=== PATIENT | male | born 1950 | race Caucasian/White ===

== ENCOUNTER 2020-03-18 11:45 | Inpatient (IN) | payer MEDICAID, MEDICARE, OTHER, SELFPAY ==
[~2020-03-18] VITALS: Ht 170.2 cm; Wt 57.6 kg
[2020-03-18 12:00] VITALS: BP_SYST 74
--- NOTE | 2020-03-18 12:00 | NUR ---
Patient to ER bed 8 to gown for evaluation. Side rails up.
--- NOTE | 2020-03-18 12:05 | NUR ---
Pt bib EMS from SNF with c/o generalized weakness, n/v x2 days. Pt currently on dialysis but refused today's treatment. V/S stable, pt is afebrile. Currently resting in bed, will continue to monitor.
--- NOTE | 2020-03-18 12:05 | NUR ---
ER Dr. Gates at bedside examining patient.
--- NOTE | 2020-03-18 12:10 | NUR ---
Nasal swab obtained to r/o covid. Sample sent to lab, pt tolerated well.
--- NOTE | 2020-03-18 12:10 | NUR ---
# 20 gauge angiocath placed to LAC. Use of asceptic technique. Opsite placed over site. Blood return noted. Blood for lab drawn from site. Flushed with 10 cc of normal saline. No evidence of infiltration noted. Patient tolerated well.
[2020-03-18] MEDS ORDERED: NACL 0.9% 1,000 ML IV ONE ×2 (12:15→15:45)
[2020-03-18 12:23] LABS: BASOPHILS % (AUTO) 0.3 % (0.0-2.0); EOSINOPHILS % (AUTO) 0.1 % (0.0-4.0); HEMATOCRIT 40.6 % (36-54); HEMOGLOBIN 13.2 g/dL (14.0-18.0); LYMPHOCYTES # (AUTO) 2.1 K/uL (1.0-5.5); LYMPHOCYTES % (AUTO) 15.1 % (20.5-51.5); MEAN CORPUSCULAR HEMOGLOBIN 33 pg (27-31); MEAN CORPUSCULAR HGB CONC 33 % (32-36); MEAN CORPUSCULAR VOLUME 101 fL (79.0-98.0); MONOCYTES # (AUTO) 1.5 K/uL (0.0-1.0); MONOCYTES % (AUTO) 10.4 % (1.7-9.3); NEUTROPHILS # (AUTO) 10.5 K/uL (1.8-7.7); NEUTROPHILS % (AUTO) 74.1 % (40.0-70.0); PLATELET COUNT (AUTO) 204 K/uL (130-430); RED BLOOD CELL COUNT(AUTO) 4.02 MIL/uL (4.2-6.2); RED CELL DISTRIBUTION WIDTH 15.5 % (9.0-15.0); WHITE BLOOD COUNT (AUTO) 14.2 K/uL (4.8-10.8)
--- NOTE | 2020-03-18 12:23 | NUR ---
Radiology at bedside for CXR
[2020-03-18 12:42] LABS: CALCIUM 10.5 mg/dL (8.4-11.0); CREATININE 5.79 mg/dL (0.55-1.30); POTASSIUM 3.7 mmol/L (3.5-5.1)
[2020-03-18 12:46] LABS: INR 1.2 (0.80-1.20)
[2020-03-18 12:48] LABS: ALBUMIN 2.9 g/dL (3.4-4.8); TOTAL BILIRUBIN 1.3 mg/dL (0.0-1.0)
[2020-03-18] MEDS ORDERED: AMIT10TA6 PO (13:08)
[2020-03-18] MEDS ORDERED: ZINC220T4 PO (13:08)
[2020-03-18] MEDS ORDERED: TAMS-11 PO (13:08)
[2020-03-18] MEDS ORDERED: NEU300 PO (13:08)
[2020-03-18] MEDS ORDERED: NEPH PO (13:08)
[2020-03-18] MEDS ORDERED: APIX2.5T PO (13:08)
[2020-03-18] MEDS ORDERED: MIDO10TA PO (13:08)
--- NOTE | 2020-03-18 13:10 | NUR ---
Med rec and belongings list completed.
[2020-03-18] MEDS ORDERED: ceFAZolin SODIUM 1 GM VIAL IM ONE (13:15)
--- NOTE | 2020-03-18 13:20 | NUR ---
Patient transported to radiology via wheelchair, accompanied by staff.
--- NOTE | 2020-03-18 14:03 | NUR ---
Talked to , Beverly, she would like a call for updates when possible. [phone]
--- NOTE | 2020-03-18 14:29 | NUR ---
Admit orders received from Dr. Bolaños, pt will go to Tele. Talked to JOSE Davis for bed assignment. She will call me back.
[2020-03-18] MEDS ORDERED: VANCOMYCIN HCL Non-Formulary 125 MG CAPSULE PO ONE (14:30)
--- NOTE | 2020-03-18 15:28 | NUR ---
Patient will be admitted to care of Dr. Bolaños. Admitted to Tele unit. Will go to room 114A. Belongings list completed. Complete and up to date summary report printed. SBAR report to be given at bedside with opportunity for questions. IV site patent and intact.
--- NOTE | 2020-03-18 16:03 | NUR ---
CONSULTATION CALLED REASON FOR CONSULTATION:C.DIFF WAS CONSULT CALLED?Y PERSON WHO WAS NOTIFIED:KENAN CONSULTING PHYSICIAN:TERA ABRAHAM GAMEROOM TECHNICIAN SPECIALTY:INFECTIOUS DISEASE GAMEROOM TECHNICIAN PHONE NUMBER:[phone] REQUESTING PHYSICIAN:SUKHJINDER HERNANDEZ
--- NOTE | 2020-03-18 16:05 | NUR ---
CONSULTATION CALLED REASON FOR CONSULTATION:ESRD WAS CONSULT CALLED?Y PERSON WHO WAS NOTIFIED:AZALIA CONSULTING PHYSICIAN:NARESH MILTON COMPLETION SUPERVISOR SPECIALTY:NEPHRO COMPLETION SUPERVISOR PHONE NUMBER:[phone] REQUESTING PHYSICIAN:SUKHJINDER HERNANDEZ
[2020-03-18 16:10] VITALS: BP_SYST 105
--- NOTE | 2020-03-18 16:10 | NUR ---
Opening Note patient brought to room 114A via gurney by LAND MANAGEMENT SUPERVISOR, received bedside SBAR report, patient resting in bed, A&Ox4, respirations even and unlabored on room air, tele monitor in place, no acute distress noted, patient denies any pain, NS bolus still infusing at this time, educated patient on use of call light and asked to call for assistance, patient verbalized understanding, call light in reach, bed in low and locked position, bed alarm on.
[2020-03-18] MEDS: D5/0.45 NS 1,000 ML IV SCH (18:13)
[2020-03-18] MEDS ORDERED: MIDODRINE HCL 5 MG TABLET (PROAMATINE) PO ONE (18:15)
[2020-03-18] MEDS ORDERED: APIXABAN 2.5 MG TABLET PO ONE (18:15)
--- NOTE | 2020-03-18 18:56 | NUR ---
Emesis patient had episode of emesis, 50ml, educated patient on PRN zofran and offered patient PRN zofran, patient refusing PRN zofran at this time, patient states that he feels a little better now, no acute distress noted, respirations even and unlabored on room air.
--- NOTE | 2020-03-18 19:18 | NUR ---
Closing Note bedside SBAR report given to receiving RN, patient resting in bed, respirations even and unlabored on room air, no acute distress noted, educated patient on use of call light and asked to call for assistance, patient verbalized understanding, call light in reach, bed in low and locked position, bed alarm on, care endorsed to senior counsel RN.
[2020-03-18 19:20] VITALS: BP_SYST 105
--- NOTE | 2020-03-18 19:20 | NUR ---
INITIAL NOTES PATIENT IS STABLE AND LAYING IN BED. NO S/S OF RESPIRATORY DISTRESS NOTED. CALL LIGHT IN REACH. PATIENT SUCCESSFULLY DEMONSTRATES USAGE OF CALL LIGHT. PLAN OF CARE IS DISCUSSED WITH PATIENT. FALL, SAFETY, ASPIRATION, AND RESPIRATORY PRECAUTIONS WILL BE IN PLACE THROUGHOUT THE SHIFT. PLAN OF CARE IS DISCUSSED WITH PATIENT.
--- NOTE | 2020-03-18 21:20 | NUR ---
PATIENT IS SLEEPING IN BED. NO S/S OF RESPIRATORY DISTRESS NOTED. CALL LIGHT IN REACH.
[2020-03-18] MEDS: metroNIDAZOLE 500 mg/NS 100 ML IV SCH (22:32)
--- NOTE | 2020-03-18 23:20 | NUR ---
PATIENT IS SLEEPING IN BED AND SHOWS NO S/S OF RESPIRATORY DISTRESS. CALL LIGHT IN REACH.
[2020-03-19 00:45] VITALS: BP_SYST 90
--- NOTE | 2020-03-19 03:35 | NUR ---
COMMUNICATED WITH DR. SAMAYOA COMMUNICATED WITH DR. SAMAYOA ABOUT HEART RATE AND BLOOD PRESSURE. ORDERED ALBUMIN AND CONSULT FOR SHANE. Addendum: 03/19/20 at 0642 by Guilherme Song RN HEART RATE SUSTAINING IN THE 120'S*
[2020-03-19] MEDS ORDERED: ALBUMIN HUMAN 25% 200 ML IV ONE (03:45)
--- NOTE | 2020-03-19 03:51 | NUR ---
MEDICATION PIXUS HAD ONLY ALBUMIN 25% IN 100 ML. 2 WAS TAKEN OUT TO EQUAL 200 ML. FIRST ALBUMIN 100 HUNG NOW.
--- NOTE | 2020-03-19 05:16 | NUR ---
CONSULT: CONSULT CALLED FOR DR. LYNN I SPOKE WITH CLEMENT LINDER REASON FOR CONSULT: TACHYCARDIA REQUESTING CONSULT: DR SAMAYOA WAISTLINE JOINER LOCKSTITCH PHONE NUMBER: [phone]
[2020-03-19] MEDS: metroNIDAZOLE 500 mg/NS 100 ML IV SCH ×3 (05:51→21:16)
--- NOTE | 2020-03-19 06:30 | NUR ---
SECOND ALBUMIN 25% IN 100 ML HUNG NOW.
--- NOTE | 2020-03-19 06:40 | NUR ---
CLOSING NOTE PATIENT IS STABLE AND LAYING IN BED. NO S/S OF RESPIRATORY DISTRESS NOTED. CALL LIGHT IN REACH. BED IS LOCKED, ALARMED, AND AT THE LOWEST POSITION. FALL, SAFETY, ASPIRATION, AND RESPIRATORY PRECAUTIONS HAS BEEN IN PLACE THROUGHOUT THE SHIFT. WILL CONTINUE TO MONITOR UNTIL SBAR REPORT IS ENDORSED TO AM NURSE.
[2020-03-19 07:59] LABS: BASOPHILS % (AUTO) 0.1 % (0.0-2.0); EOSINOPHILS % (AUTO) 0.4 % (0.0-4.0); HEMATOCRIT 32.3 % (36-54); HEMOGLOBIN 10.6 g/dL (14.0-18.0); LYMPHOCYTES # (AUTO) 1.6 K/uL (1.0-5.5); LYMPHOCYTES % (AUTO) 12.4 % (20.5-51.5); MEAN CORPUSCULAR HEMOGLOBIN 33 pg (27-31); MEAN CORPUSCULAR HGB CONC 33 % (32-36); MEAN CORPUSCULAR VOLUME 101 fL (79.0-98.0); MONOCYTES # (AUTO) 1.7 K/uL (0.0-1.0); MONOCYTES % (AUTO) 13.7 % (1.7-9.3); NEUTROPHILS # (AUTO) 9.3 K/uL (1.8-7.7); NEUTROPHILS % (AUTO) 73.4 % (40.0-70.0); PLATELET COUNT (AUTO) 176 K/uL (130-430); RED BLOOD CELL COUNT(AUTO) 3.22 MIL/uL (4.2-6.2); RED CELL DISTRIBUTION WIDTH 15.6 % (9.0-15.0); WHITE BLOOD COUNT (AUTO) 12.6 K/uL (4.8-10.8)
[2020-03-19 08:00] VITALS: BP_SYST 102
[2020-03-19 08:12] LABS: ALBUMIN 2.9 g/dL (3.4-4.8); CALCIUM 9.1 mg/dL (8.4-11.0); CREATININE 5.54 mg/dL (0.55-1.30); PHOSPHORUS 4.9 mg/dL (2.7-4.5); POTASSIUM 3.2 mmol/L (3.5-5.1); TOTAL BILIRUBIN 1.5 mg/dL (0.0-1.0)
[2020-03-19 08:50] LABS: THYROID STIMULATING HORMONE 0.48 uIu/mL (0.34-4.82)
[2020-03-19] MEDS: MIDODRINE HCL 5 MG TABLET (PROAMATINE) PO SCH ×3 (09:29→21:16)
[2020-03-19] MEDS: APIXABAN 2.5 MG TABLET PO SCH ×2 (09:30→21:21)
--- NOTE | 2020-03-19 09:48 | NUR ---
alert, oriented, wide awake. Did not even touch breakfast tray, " want In and Out only" Still tachy, HR 115, now seen by bin piler , dr Barrios awaiting HD today, will address low potassium when attending makes round ( K + 3.2)
--- NOTE | 2020-03-19 10:07 | NUR ---
Nutrition Update Jayy Scale 14 noted. Pt admitted for renal failure, r/o C. diff. Diet: 2 gm Na BMI: 19 kg/m2 RD to follow per nutrition care standards.
[2020-03-19] MEDS: D5/0.45 NS 1,000 ML IV SCH (10:30)
[2020-03-19] MEDS ORDERED: POTASSIUM CHLORIDE 20 MEQ/PKT PACKET PO ONE (12:30)
[2020-03-19 12:45] VITALS: BP_SYST 90
--- NOTE | 2020-03-19 14:44 | NUR ---
SS NOTES/DCP: SHELF STOCKER was referred by CM to see patient for DCP. Demographic information confirmed. SHELF STOCKER met with patient at bedside but was asleep. SHELF STOCKER phoned spouse, Beverly @ [phone] instead. Per Beverly pt was independent before his hospitalizations started in November 2018. Pt had septic shock and was admitted at [facility] and discharged to multiple SNF's afterwards. Pt was also covid + 2x while at SNF. Patient's last hospitalization prior to [place] was at [facility] for 3-4 months. Per spouse, pt's source of income is his senior care. 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 Per spouse, pt does not have a history of mental health diagnosis but is "probably depressed". Spouse denies any substance use/abuse history. When discharge, spouse prefers for the patient to go back to [place]. If HHS is indicated, spouse prefers not to be discharged home due to the current construction happening in their house right now. Patient has an advanced directive and spouse is the surrogate decision maker. No further SS needs identified but will remain available.
[2020-03-19] MEDS ORDERED: COMMUNICATION ORDER XX ONE (15:45)
[2020-03-19 16:00] VITALS: BP_SYST 94
[2020-03-19] MEDS ORDERED: HEPARIN SODIUM,PORCINE 5,000 UNITS/ML VIAL MC ONE ×2 (16:00)
--- NOTE | 2020-03-19 16:07 | NUR ---
HIGH ALERT NOTE: Called Dr. Galloway back at [phone] identified within the medical roster to verify physician authenticity.
--- NOTE | 2020-03-19 17:20 | NUR ---
completed 2 1/2 hr dialysis, 250cc out . bp this time 94/60, HR 146, temp 98.9, asleep . " tired, did not want to eat, please dont wake me up".
[2020-03-19 18:08] VITALS: BP_SYST 101
--- NOTE | 2020-03-19 19:52 | NUR ---
Initial note: Received report from daysdorianft RN. Patient is awake in bed. No acute distress. Even, unlabored breathing on room air. IV fluids infusing as ordered, no infiltration. Call light with patient. Safety, fall, contact enteric precautions in place. Will continue with plan of care.
[2020-03-19 20:00] VITALS: BP_SYST 93
--- NOTE | 2020-03-19 22:33 | NUR ---
Rounds: Patient is resting in bed, no acute distress. Tolerating room air, even and unlabored breathing. IV fluids infusing well. Call light with patient. Will continue to monitor.
[2020-03-20] VITALS: BP_SYST 94
--- NOTE | 2020-03-20 00:52 | NUR ---
Rounds: Patient is asleep, no signs/symptoms of acute distress. Respirations are even and unlabored on room air. No infiltration to IV site, IV fluids infusing as ordered. Call light with patient. Will continue to monitor.
--- NOTE | 2020-03-20 03:44 | NUR ---
Rounds: Patient is sleeping comfortably. Does not show any acute distress. Even and unlabored breathing on room air. IV fluids per MD order infusing, no infiltration. Call light with patient. Will continue monitoring.
[2020-03-20] MEDS: metroNIDAZOLE 500 mg/NS 100 ML IV SCH ×3 (05:24→21:31)
[2020-03-20] MEDS: D5/0.45 NS 1,000 ML IV SCH (05:29)
[2020-03-20] MEDS: ONDANSETRON HCL 4 MG/2 ML VIAL IVP PRN (05:30)
--- NOTE | 2020-03-20 06:23 | NUR ---
Dr. Barrios: was paged at this time and made aware of patient having runs of bigeminy PVC's overnight. Patient did not complain of any chest pain, SBP has been in the 90's, and HR in the 120's. MD stated to monitor patient and watch for potassium results.
--- NOTE | 2020-03-20 06:31 | NUR ---
Closing note: Patient is resting comfortably in bed. Does not show any acute distress. Tolerating room air. Respirations even and unlabored. IV fluids infusing per MD order, site is patent and benign. All needs met. Safety, fall, enteric contact iso precautions in place. Call light with patient. Will endorse care to dayshift RN.
[2020-03-20 07:19] LABS: HEMATOCRIT 35.6 % (36-54); HEMOGLOBIN 11.5 g/dL (14.0-18.0); MEAN CORPUSCULAR HEMOGLOBIN 33 pg (27-31); MEAN CORPUSCULAR HGB CONC 32 % (32-36); MEAN CORPUSCULAR VOLUME 102 fL (79.0-98.0); PLATELET COUNT (AUTO) 188 K/uL (130-430); RED CELL DISTRIBUTION WIDTH 15.4 % (9.0-15.0); WHITE BLOOD COUNT (AUTO) 27.3 K/uL (4.8-10.8)
[2020-03-20 07:31] LABS: CALCIUM 8.9 mg/dL (8.4-11.0); CREATININE 4.6 mg/dL (0.55-1.30); POTASSIUM 3.2 mmol/L (3.5-5.1)
[2020-03-20 08:00] VITALS: BP_SYST 85
--- NOTE | 2020-03-20 08:00 | NUR ---
Initial notes In bed awake and oriented, afebrile. ivf infusing well. has incontinent of stool, change and repositioned complains. denies any chest pain or shortness of breath. safety precaution observed. call light in reach. Will continue
[2020-03-20] MEDS: MIDODRINE HCL 5 MG TABLET (PROAMATINE) PO SCH ×3 (08:32→21:30)
[2020-03-20] MEDS: APIXABAN 2.5 MG TABLET PO SCH ×2 (08:38→21:35)
--- NOTE | 2020-03-20 09:40 | NUR ---
ROUNDS Dr. Barrios here and made aware of low blood pressure and potassium results.
--- NOTE | 2020-03-20 10:00 | NUR ---
Consults- Follow up Dr. Jayshree Sherwood for consults.
[2020-03-20] MEDS: ALBUMIN HUMAN 25% 50 ML IV SCH ×3 (10:09→23:35)
[2020-03-20 10:13] LABS: BAND % (MANUAL) 39 % (0-6); BASOPHILS % (MANUAL) 0 % (0-2); EOSINOPHILS % (MANUAL) 0 % (0-7); LYMPHOCYTES % (MANUAL) 12 % (20-46); METAMYELOCYTES % 1 % (0-0); MONOCYTES % (MANUAL) 6 % (0-11)
--- NOTE | 2020-03-20 11:15 | NUR ---
MD ROUNDS DR. MALLORY here and aware of labs results.
--- NOTE | 2020-03-20 11:51 | NUR ---
nOTES/ md ROUNDS PT IS WATCHING TV, DENIES ANY PAIN NO DISTRESS NOTED. DR. Galloway at bedside talking to patient.
[2020-03-20 12:00] VITALS: BP_SYST 92
[2020-03-20] MEDS ORDERED: POTASSIUM CHLORIDE 20 MEQ TAB.PRT.SR PO ONE (12:15)
[2020-03-20] MEDS ORDERED: FLUDROCORTISONE ACETATE 0.1 MG TABLET( FLORINEF) PO ONE (12:15)
--- NOTE | 2020-03-20 12:30 | NUR ---
Notes Does not want the food, patient is drinking his nephro at this time.
[2020-03-20] MEDS ORDERED: LEVOFLOXACIN 500 MG/D5W 100 ML IV ONE (13:45)
--- NOTE | 2020-03-20 13:49 | NUR ---
CONSULTATION: REASON FOR CONSULT: COITIS CONSULTING PHYSICIAN: CLAUDIA ROJAS MD ORDERED BY: TERA MALLORY MD [phone] TUTTLE WHO IS COVERING FOR DR ROJAS AND IS AWARE OF THE CONSULT
--- NOTE | 2020-03-20 14:25 | NUR ---
Dietitian Recommendations * Recommend continuing 2 gm Na diet w/ Nepro TID (ONS provides 1275 kcal/day, 57 gm protein/day) [place] SOARES Please refer to Nutrition Assessment for details. Addendum: 03/20/20 at [address] Amended: Links added.
--- NOTE | 2020-03-20 14:36 | NUR ---
Notes- Instructed patient to call if he feels like he is going to have bowel movements. Patient's verbalize understanding.
[2020-03-20 16:36] VITALS: BP_SYST 98
--- NOTE | 2020-03-20 16:51 | NUR ---
BM-Patient had urine and small bowel movement at the same time in the bedpan. will collect another one.
[2020-03-20] MEDS ORDERED: VANCOMYCIN HCL ORAL SOLUTION 250 MG/5 ML, 80 ML PO SCH (17:00)
[2020-03-20] MEDS: METOCLOPRAMIDE HCL 10 MG/2 ML VIAL IVP PRN (17:24)
[2020-03-20] MEDS: VANCOMYCIN HCL ORAL SOLUTION 250 MG/5 ML, 80 ML PO SCH ×2 (17:25→21:31)
--- NOTE | 2020-03-20 18:08 | NUR ---
Notes- Enc patient to eat, patient only wants to drink her nephro at this time. No acute distress noted. will continue to monitor.
[2020-03-20 20:00] VITALS: BP_SYST 86
[2020-03-20 23:36] VITALS: BP_SYST 91
--- NOTE | 2020-03-21 00:35 | NUR ---
Stool sample: Patient had a BM with brown, watery stool. Sample collected for ordered stool culture and occult blood. Sent to lab at this time.
[2020-03-21] MEDS: metroNIDAZOLE 500 mg/NS 100 ML IV SCH ×3 (05:10→23:13)
[2020-03-21] MEDS: D5/0.45 NS 1,000 ML IV SCH ×2 (05:11→23:14)
[2020-03-21 06:46] LABS: HEMATOCRIT 34.9 % (36-54); HEMOGLOBIN 11.1 g/dL (14.0-18.0); MEAN CORPUSCULAR HEMOGLOBIN 33 pg (27-31); MEAN CORPUSCULAR HGB CONC 32 % (32-36); MEAN CORPUSCULAR VOLUME 102 fL (79.0-98.0); PLATELET COUNT (AUTO) 166 K/uL (130-430); RED BLOOD CELL COUNT(AUTO) 3.43 MIL/uL (4.2-6.2); RED CELL DISTRIBUTION WIDTH 15.6 % (9.0-15.0)
[2020-03-21 07:17] LABS: CREATININE 5.12 mg/dL (0.55-1.30); POTASSIUM 3.3 mmol/L (3.5-5.1)
[2020-03-21 08:00] VITALS: BP_SYST 92
--- NOTE | 2020-03-21 08:00 | NUR ---
Initial notes watching tv, denies any chest pain or shortness of breath. feels nauseated. will medicate. Repositioned for comfort. update plan of care. will monitor.
[2020-03-21] MEDS: VANCOMYCIN HCL ORAL SOLUTION 250 MG/5 ML, 80 ML PO SCH ×4 (08:34→22:14)
[2020-03-21] MEDS: FLUDROCORTISONE ACETATE 0.1 MG TABLET( FLORINEF) PO SCH (08:34)
[2020-03-21] MEDS: MIDODRINE HCL 5 MG TABLET (PROAMATINE) PO SCH ×3 (08:34→22:14)
[2020-03-21] MEDS: APIXABAN 2.5 MG TABLET PO SCH ×2 (08:37→22:16)
[2020-03-21] MEDS: ONDANSETRON HCL 4 MG/2 ML VIAL IVP PRN (08:38)
[2020-03-21 08:43] LABS: WHITE BLOOD COUNT (AUTO) 38.2 K/uL (4.8-10.8)
--- NOTE | 2020-03-21 08:51 | NUR ---
BRIT MALLORY SPOKE TO YOSHI
--- NOTE | 2020-03-21 08:55 | NUR ---
critical lab- Paged Dr. chacko. waiting for MD to call back.
--- NOTE | 2020-03-21 09:55 | NUR ---
paged- Spoke to Dr. Bolaños and made aware of wbc resu Addendum: 03/21/20 at 1144 by Mikki Dooley RN made aware of WBC results. stated to wait for DR. Sherwood. No new orders at this time.
[2020-03-21] MEDS ORDERED: ALBUMIN HUMAN 25% 200 ML IV ONE (11:00)
[2020-03-21] MEDS ORDERED: COMMUNICATION ORDER XX ONE (11:00)
--- NOTE | 2020-03-21 11:40 | NUR ---
Notes- Patient still having dialysis at this time.No acute distress noted.
[2020-03-21 11:41] LABS: BAND % (MANUAL) 36 % (0-6); BASOPHILS % (MANUAL) 0 % (0-2); EOSINOPHILS % (MANUAL) 0 % (0-7); LYMPHOCYTES % (MANUAL) 5 % (20-46); MONOCYTES % (MANUAL) 2 % (0-11); WBC MORPHOLOGY TOXIC GRANULATION
[2020-03-21 12:38] VITALS: BP_SYST 94
[2020-03-21] MEDS ORDERED: POTASSIUM CHLORIDE 20 MEQ/PKT PACKET PO ONE (14:30)
--- NOTE | 2020-03-21 15:00 | NUR ---
notes- Dialysis done with 600 output.
[2020-03-21 16:12] VITALS: BP_SYST 95
[2020-03-21] MEDS: METOCLOPRAMIDE HCL 10 MG/2 ML VIAL IVP PRN (16:41)
--- NOTE | 2020-03-21 18:30 | NUR ---
Notes Watching tv. No distress noted. Pt cleaned. Enc to call if he needs to be changed. pt verbalize understanding.
--- NOTE | 2020-03-21 19:30 | NUR ---
OPENING NOTES RECEIVED REPORT FROM DAY SHIFT RN. PT RESTING IN BED. BREATHING EVEN AND UNLABORED TO ROOM AIR. CHEST RISE AND FALL SYMMETRICAL. NO SIGNS OF RESPIRATORY NOTED. IV ON LEFT AC20G INTACT, NO SIGNS OF INFILTRATION NOTED. IVF RUNNING ORDERED RATE. RIGHT SUBCLAVIAN PERMACATH INTACT, NO BLEEDING NOTED. CALL LIGHT WITHIN REACH . BED ALARM ON, LOCKED IN LOWEST POSITION. SAFETY, FALL, AND CONTACT ISOLATION PRECAUTIONS MAINTAINED. WILL CONTINUE TO MONITOR.
[2020-03-21 20:00] VITALS: BP_SYST 88
[2020-03-21] MEDS: CHOLESTYRAMINE/SUCROSE 4 GM/PACKET PO SCH (23:13)
[2020-03-22 01:57] VITALS: BP_SYST 112
[2020-03-22 02:00] VITALS: BP_SYST 112
[2020-03-22] MEDS: metroNIDAZOLE 500 mg/NS 100 ML IV SCH ×3 (06:13→21:00)
[2020-03-22 07:02] LABS: BASOPHILS # (AUTO) 0.1 K/uL (0.0-0.2); BASOPHILS % (AUTO) 0.2 % (0.0-2.0); EOSINOPHILS # (AUTO) 0.1 K/uL (0.0-0.4); EOSINOPHILS % (AUTO) 0.2 % (0.0-4.0); HEMATOCRIT 34.5 % (36-54); HEMOGLOBIN 11.2 g/dL (14.0-18.0); LYMPHOCYTES # (AUTO) 3.2 K/uL (1.0-5.5); LYMPHOCYTES % (AUTO) 10.6 % (20.5-51.5); MEAN CORPUSCULAR HEMOGLOBIN 33 pg (27-31); MEAN CORPUSCULAR HGB CONC 32 % (32-36); MEAN CORPUSCULAR VOLUME 101 fL (79.0-98.0); MONOCYTES # (AUTO) 1.3 K/uL (0.0-1.0); MONOCYTES % (AUTO) 4.4 % (1.7-9.3); NEUTROPHILS # (AUTO) 25.3 K/uL (1.8-7.7); PLATELET COUNT (AUTO) 170 K/uL (130-430); RED BLOOD CELL COUNT(AUTO) 3.41 MIL/uL (4.2-6.2); RED CELL DISTRIBUTION WIDTH 15.9 % (9.0-15.0); WHITE BLOOD COUNT (AUTO) 29.9 K/uL (4.8-10.8)
--- NOTE | 2020-03-22 07:14 | NUR ---
CLOSING NOTES PT RESTING IN BED. BREATHING EVEN AND UNLABORED TO ROOM AIR. CHEST RISE AND FALL SYMMETRICAL. NO SIGNS OF RESPIRATORY NOTED. IV ON LEFT AC20G INTACT, NO SIGNS OF INFILTRATION NOTED. IVF RUNNING ORDERED RATE. RIGHT SUBCLAVIAN PERMACATH INTACT, NO BLEEDING NOTED. CALL LIGHT WITHIN REACH . BED ALARM ON, LOCKED IN LOWEST POSITION. SAFETY, FALL, AND CONTACT ISOLATION PRECAUTIONS MAINTAINED. ALL NEEDS ARE MET THROUGHOUT SHIFT. WILL CONTINUE TO MONITOR UNTIL ENDORSE TO DAY SHIFT RN.
[2020-03-22 07:15] LABS: CALCIUM 8.3 mg/dL (8.4-11.0); CREATININE 3.16 mg/dL (0.55-1.30)
[2020-03-22 07:54] LABS: POTASSIUM 2.8 mmol/L (3.5-5.1)
[2020-03-22 08:00] VITALS: BP_SYST 98
--- NOTE | 2020-03-22 08:00 | NUR ---
initial notes rec patient awake alert withi vf infusing well. no infiltration noted. resp easy and unlabored. no sob noted. bed to the lowest position and side rails up and locked. call light within reached.
[2020-03-22 08:47] LABS: NEUTROPHILS % (AUTO) 84.6 % (40.0-70.0)
[2020-03-22] MEDS ORDERED: POTASSIUM CHLORIDE 20 MEQ/PKT PACKET PO SCH (09:00)
[2020-03-22] MEDS: VANCOMYCIN HCL ORAL SOLUTION 250 MG/5 ML, 80 ML PO SCH ×4 (10:52→20:45)
[2020-03-22] MEDS: LEVOFLOXACIN 250 MG/D5W 50 ML IV SCH (10:52)
[2020-03-22] MEDS: CHOLESTYRAMINE/SUCROSE 4 GM/PACKET PO SCH ×3 (10:52→20:45)
[2020-03-22] MEDS: FLUDROCORTISONE ACETATE 0.1 MG TABLET( FLORINEF) PO SCH (10:53)
[2020-03-22] MEDS: MIDODRINE HCL 5 MG TABLET (PROAMATINE) PO SCH ×3 (10:53→20:45)
[2020-03-22] MEDS: APIXABAN 2.5 MG TABLET PO SCH ×2 (10:54→20:47)
[2020-03-22] MEDS: POTASSIUM CHLORIDE 20 MEQ/PKT PACKET PO SCH ×2 (11:00→20:45)
--- NOTE | 2020-03-22 12:00 | NUR ---
rounds due meds given and chetna well. call light within reached.
[2020-03-22 12:16] VITALS: BP_SYST 92
--- NOTE | 2020-03-22 14:00 | NUR ---
rounds due meds were given and chetna well. call light withn reached.
--- NOTE | 2020-03-22 16:00 | NUR ---
rounds sleeps at intervals and call light within reached.
[2020-03-22 16:14] VITALS: BP_SYST 93
--- NOTE | 2020-03-22 17:06 | NUR ---
rounds seen by dr deras at bedside. no sob noted.
--- NOTE | 2020-03-22 19:28 | NUR ---
OPENING NOTES RECEIVED REPORT FROM DAY SHIFT RN. PT RESTING IN BED. BREATHING EVEN AND UNLABORED TO ROOM AIR. NO S/S OF RESPIRATORY DISTRESS NOTED. IV ON LEFT AC20G INTACT, NO SIGNS OF INFILTRATION NOTED. IVF RUNNING ORDERED RATE. RIGHT SUBCLAVIAN PERMACATH INTACT, NO BLEEDING. CALL LIGHT WITHIN REACH . BED ALARM ON, LOCKED IN LOWEST POSITION. SAFETY, FALL, AND ENTERIC CONTACT ISOLATION PRECAUTIONS MAINTAINED. WILL CONTINUE TO MONITOR.
[2020-03-22 20:00] VITALS: BP_SYST 100
[2020-03-22] MEDS: D5/0.45 NS 1,000 ML IV SCH (20:46)
--- NOTE | 2020-03-22 21:00 | NUR ---
MEDICATION PASS SCHEDULED MEDICATIONS ADMINISTERED ORDERED. MEDICATION ACTIONS AND POTENTIAL SIDE EFFECTS DISCUSSED WITH PT. PT VERBALIZED UNDERSTANDING. NO S/S OF ACUTE DISTRESS. SAFETY AND ISOLATION PRECAUTIONS MAINTAINED. WILL MONITOR.
--- NOTE | 2020-03-22 23:30 | NUR ---
INCONTINENCE CARE PT INCONTINENT OF BOWELS. WEATHERIZATION COORDINATOR CLEANED AND REPOSITIONED PT. PT TOLERATED WELL. NO S/S OF ACUTE DISTRESS. BREATHING IS UNLABORED TO ROOM AIR. SAFETY AND ISOLATION PRECAUTIONS MAINTAINED. WILL MONITOR.
[2020-03-23 00:51] VITALS: BP_SYST 109
--- NOTE | 2020-03-23 01:40 | NUR ---
RN ROUNDS: PT RESTING IN BED COMFORTABLY. NO S/S OF DISTRESS NOTED. SAFETY AND ISOLATION PRECAUTIONS MAINTAINED. WILL MONITOR.
--- NOTE | 2020-03-23 03:30 | NUR ---
RN ROUNDS: PT RESTING IN BED COMFORTABLY. NO S/S OF DISTRESS NOTED. SAFETY AND ISOLATION PRECAUTIONS MAINTAINED. WILL MONITOR.
[2020-03-23] MEDS: D5/0.45 NS 1,000 ML IV SCH (05:18)
[2020-03-23] MEDS: metroNIDAZOLE 500 mg/NS 100 ML IV SCH ×3 (05:18→21:07)
--- NOTE | 2020-03-23 05:50 | NUR ---
IV RE-INSERTION: IV NOTED TO BE DISLODGED. Restarted on LEFT WRIST 24 GAUGE . Successful after MULTIPLE attempts. Resumed current IVF of D51/2NS and regulated TO INFUSE AT ORDERED RATE. Will observe for any signs of infiltration.
[2020-03-23 06:52] LABS: BASOPHILS # (AUTO) 0.1 K/uL (0.0-0.2); BASOPHILS % (AUTO) 0.3 % (0.0-2.0); EOSINOPHILS # (AUTO) 0.1 K/uL (0.0-0.4); EOSINOPHILS % (AUTO) 0.3 % (0.0-4.0); HEMATOCRIT 37.2 % (36-54); HEMOGLOBIN 12.1 g/dL (14.0-18.0); LYMPHOCYTES % (AUTO) 12.7 % (20.5-51.5); MEAN CORPUSCULAR HEMOGLOBIN 33 pg (27-31); MEAN CORPUSCULAR HGB CONC 33 % (32-36); MEAN CORPUSCULAR VOLUME 101 fL (79.0-98.0); MONOCYTES # (AUTO) 1.1 K/uL (0.0-1.0); MONOCYTES % (AUTO) 4.8 % (1.7-9.3); NEUTROPHILS # (AUTO) 19.3 K/uL (1.8-7.7); PLATELET COUNT (AUTO) 168 K/uL (130-430); RED CELL DISTRIBUTION WIDTH 15.6 % (9.0-15.0); WHITE BLOOD COUNT (AUTO) 23.6 K/uL (4.8-10.8)
--- NOTE | 2020-03-23 06:57 | NUR ---
CLOSING NOTES PT RESTING IN BED. BREATHING EVEN AND UNLABORED TO ROOM AIR. CHEST RISE AND FALL SYMMETRICAL. NO SIGNS OF RESPIRATORY NOTED. IV ON LEFT LEFT WRIST IS INTACT, NO SIGNS OF INFILTRATION NOTED. IVF RUNNING ORDERED RATE. RIGHT SUBCLAVIAN PERMACATH INTACT, NO BLEEDING NOTED. CALL LIGHT WITHIN REACH . BED ALARM ON, LOCKED IN LOWEST POSITION. SAFETY, FALL, AND CONTACT ISOLATION PRECAUTIONS MAINTAINED. ALL NEEDS ARE MET THROUGHOUT SHIFT. WILL CONTINUE TO MONITOR UNTIL ENDORSE TO DAY SHIFT RN.
[2020-03-23 06:58] LABS: CALCIUM 8.7 mg/dL (8.4-11.0); CREATININE 3.85 mg/dL (0.55-1.30)
--- NOTE | 2020-03-23 07:26 | NUR ---
Opening Note received bedside SBAR report from reservations manager RN, patient resting in bed, respirations even and unlabored on room air, no acute distress noted, patient denies any pain or shortness of breath, no acute distress noted, educated patient on use of call light and asked to call for assistance, patient verbalized understanding, call light in reach, bed in low and locked position, bed alarm on.
[2020-03-23 08:00] VITALS: BP_SYST 91
[2020-03-23 08:18] LABS: NEUTROPHILS % (AUTO) 81.9 % (40.0-70.0)
--- NOTE | 2020-03-23 08:23 | NUR ---
Physician Rounds Dr. Mcarthur at bedside examining patient, Dr. Mcarthur is aware of WBC 23.6 today, informed him that patient is still having multiple episodes of diarrhea and poor oral intake, per Dr. Mcarthur given PRN reglan before lunch to see if that improves oral intake.
[2020-03-23] MEDS: CHOLESTYRAMINE/SUCROSE 4 GM/PACKET PO SCH ×3 (08:51→21:06)
[2020-03-23] MEDS: MIDODRINE HCL 5 MG TABLET (PROAMATINE) PO SCH ×3 (08:51→21:06)
[2020-03-23] MEDS: POTASSIUM CHLORIDE 20 MEQ/PKT PACKET PO SCH ×2 (08:51→21:06)
[2020-03-23] MEDS: FLUDROCORTISONE ACETATE 0.1 MG TABLET( FLORINEF) PO SCH (08:51)
[2020-03-23] MEDS: VANCOMYCIN HCL ORAL SOLUTION 250 MG/5 ML, 80 ML PO SCH ×4 (08:51→21:06)
[2020-03-23] MEDS: APIXABAN 2.5 MG TABLET PO SCH ×2 (08:52→21:07)
--- NOTE | 2020-03-23 10:05 | NUR ---
Incontinent patient incontinent of bowel, patient cleaned with assistance from MASTER COSMETOLOGIST, linen and gown changed, patient tolerated well.
[2020-03-23 12:11] VITALS: BP_SYST 105
--- NOTE | 2020-03-23 12:40 | NUR ---
Nutrition F/U Admitting Diagnosis: Renal failure, r/o C. diff Medical History Comment: PMH: CVA, GI bleed, DVT, exploratory laparotomy and bowel resection, CHF, anemia, GERD per physician notes Pt also found w/ ESRD/HD and severe malnutrition per physician notes SARS-CoV-2 Ag (Rapid) Negative 03/18 03/23 notes: Atrial fibrillation, Hx of liver abscesses r/t cholecystitis in the past, C.diff Positive, on flagyl. Subjective Information: Pt seen resting in bed at time of RD visit earlier today. Pt verbalized food preferences, RD notified [facility] staff. Pt also reported that he can only tolerate 1 bottle of Nepro per day. RD to decrease frequency of supplement delivery per pt request. Pt admits to continue having episodes of diarrhea and agreed to RD rec for Banatrol. Per EMR, GI MD noted, WBC is coming down but diarrhea continues, MD to continue w/ treatment for C.diff. Pt w/ renal dz on HD, last HD was 03/21 and may benefit from renal standard diet. New weight noted 03/23: 122#/ 55.56 kg Current Diet Order/Nutrition Support: 2 gm Na, Nepro TID x3 days Pertinent Medications: eliquis, zofran, KCl packet, vancomycin, reglan Pertinent Labs K 3 L, BUN 43 H, CRE 3.85 H, BG 101 H, WBC 23.6 H Skin Integrity Comment: Jayy scale: 15; no PIs noted per EMR Current % PO Negligible <25% Estimated Energy Expenditure (kcals/day) 0537-2279 kcal/day (30-35 kcal/kg IBW for wt gain promotion, ESRD on HD) Estimated Protein Required (g/day) 80-101 gm/day (1.2-1.5 gm/kg IBW for wt gain promotion, ESRD on HD) Estimated Fluid Required (l/day) Per physician d/t CHF and ESRD Problem/Etiology/Signs/Symptoms Altered nutrition-related labs related to renal dysfunction as evidenced by abnormal K, BUN, and CRE lab values. (*ongoing) Unintentional wt loss related to unknown etiology as evidenced by possible 14-23# wt loss within past 3 months per nursing assessment. (*ongoing) Altered GI function r/t chronic illness AEB diarrhea and C.diff. (*new 03/23) Expected Outcomes/Goals - Monitor appetite and PO intakes w/ goal of pt meeting at least 50% of estimated nutritional needs, labs trending WNL, normal GI function, and skin integrity/wt maintenance Dietitian Recommendations * Recommend Renal Standard diet, Nepro once daily, Banatrol TID. * Encourage PO intake. Follow Up High Risk: F/U in 2-3days
--- NOTE | 2020-03-23 12:45 | NUR ---
Refused Reglan offered patient PRN reglan per Dr. Desouza orders, patient refusing PRN reglan, patient states "Im fine", patient resting in bed, no acute distress noted.
--- NOTE | 2020-03-23 12:49 | NUR ---
Dietitian Recommendations * Recommend Renal Standard diet, Nepro once daily, Banatrol TID. * Encourage PO intake. Please see Nutrition F/U note for details. NORY, RD
--- NOTE | 2020-03-23 12:55 | NUR ---
Incontinent patient incontinent of bowel, liquid, brown, patient cleaned and assisted to reposition, patient tolerated well, no acute distress noted.
--- NOTE | 2020-03-23 13:16 | NUR ---
Physician Rounds Dr. Barrios at bedside examining patient.
--- NOTE | 2020-03-23 13:31 | NUR ---
Hemodialysis derrick engineer Leslie at bedside, informed her that per Dr. Barrios no fluid should be removed due to patients BP running low and patient having diarrhea, Leslie verbalized understanding, Leslie RN at bedside starting hemodialysis.
[2020-03-23 16:32] VITALS: BP_SYST 110
--- NOTE | 2020-03-23 16:33 | NUR ---
Hemodialysis hemodialysis completed by bridal gown fitter, no bleeding noted to right subclavian permacath, 0 ml out per order, no acute distress noted, respirations even and unlabored on room air.
[2020-03-23 16:34] VITALS: BP_SYST 97
--- NOTE | 2020-03-23 16:45 | NUR ---
Incontinent patient incontinent of bowel, liquid, brown, patient cleaned and linen changed, assisted patient to reposition, patient tolerated well, no acute distress noted.
[2020-03-23] MEDS: METOCLOPRAMIDE HCL 10 MG/2 ML VIAL IVP PRN (17:02)
--- NOTE | 2020-03-23 17:05 | NUR ---
Reglan educated patient on use and side effects of PRN reglan, informed him that it may help him to increase his PO intake by controlling his nausea, patient verbalized understanding, patient agreeable to take PRN reglan before dinner per Dr. Desouza orders, patient tolerating medication administration well, no acute distress noted.
--- NOTE | 2020-03-23 19:20 | NUR ---
Closing Note SBAR report given to receiving RN, patient resting in bed, respirations even and unlabored on room air, no acute distress noted, patient reports nausea is controlled, educated patient on use of call light and asked to call for assistance, patient verbalized understanding, call light in reach, bed in low and locked position, bed alarm on, care endorsed to production shift supervisor RN.
[2020-03-23 20:00] VITALS: BP_SYST 102
--- NOTE | 2020-03-23 23:40 | NUR ---
RN ROUNDS: PT RESTING IN BED COMFORTABLY. NO S/S OF DISTRESS NOTED. SAFETY AND ISOLATION PRECAUTIONS MAINTAINED. WILL MONITOR.
[2020-03-24] VITALS: BP_SYST 97
--- NOTE | 2020-03-24 01:44 | NUR ---
RN ROUNDS: PT RESTING IN BED COMFORTABLY. NO S/S OF DISTRESS NOTED. SAFETY AND ISOLATION PRECAUTIONS MAINTAINED. WILL MONITOR.
--- NOTE | 2020-03-24 03:47 | NUR ---
SLEEPING: PT RESTING IN BED COMFORTABLY. NO S/S OF DISTRESS NOTED. SAFETY AND ISOLATION PRECAUTIONS MAINTAINED. WILL MONITOR.
[2020-03-24] MEDS: metroNIDAZOLE 500 mg/NS 100 ML IV SCH ×2 (05:05→14:00)
[2020-03-24] MEDS: D5/0.45 NS 1,000 ML IV SCH (05:05)
--- NOTE | 2020-03-24 05:40 | NUR ---
INCONTINENCE CARE PT HAD LIQUID BROWN BOWEL MOVEMENT. PT CLEANED AND LINEN WAS CHANGED. PT REPOSITIONED FOR COMFORT. PT TOLERATED WELL. NO S/S OF ACUTE DISTRESS NOTED. SAFETY AND ISOLATION PRECAUTIONS MAINTAINED. WILL MONITOR.
[2020-03-24 06:33] LABS: BASOPHILS % (AUTO) 0.1 % (0.0-2.0); EOSINOPHILS # (AUTO) 0.1 K/uL (0.0-0.4); EOSINOPHILS % (AUTO) 0.5 % (0.0-4.0); HEMATOCRIT 34.1 % (36-54); HEMOGLOBIN 11.1 g/dL (14.0-18.0); LYMPHOCYTES # (AUTO) 2.1 K/uL (1.0-5.5); LYMPHOCYTES % (AUTO) 14.6 % (20.5-51.5); MEAN CORPUSCULAR HEMOGLOBIN 33 pg (27-31); MEAN CORPUSCULAR HGB CONC 33 % (32-36); MEAN CORPUSCULAR VOLUME 101 fL (79.0-98.0); MONOCYTES # (AUTO) 1.1 K/uL (0.0-1.0); MONOCYTES % (AUTO) 7.4 % (1.7-9.3); NEUTROPHILS # (AUTO) 11.4 K/uL (1.8-7.7); NEUTROPHILS % (AUTO) 77.4 % (40.0-70.0); PLATELET COUNT (AUTO) 158 K/uL (130-430); RED BLOOD CELL COUNT(AUTO) 3.39 MIL/uL (4.2-6.2); RED CELL DISTRIBUTION WIDTH 15.9 % (9.0-15.0); WHITE BLOOD COUNT (AUTO) 14.7 K/uL (4.8-10.8)
[2020-03-24 07:28] LABS: CALCIUM 8.1 mg/dL (8.4-11.0); CREATININE 2.65 mg/dL (0.55-1.30)
[2020-03-24 08:00] VITALS: BP_SYST 84
[2020-03-24 08:27] LABS: POTASSIUM 2.8 mmol/L (3.5-5.1)
--- NOTE | 2020-03-24 08:35 | NUR ---
Pt's potassium at critical level of 2.8. Left message to Dr. Bolaños. Awaiting response.
[2020-03-24] MEDS: VANCOMYCIN HCL ORAL SOLUTION 250 MG/5 ML, 80 ML PO SCH ×4 (09:46→20:29)
[2020-03-24] MEDS: LEVOFLOXACIN 250 MG/D5W 50 ML IV SCH (09:46)
[2020-03-24] MEDS: MIDODRINE HCL 5 MG TABLET (PROAMATINE) PO SCH ×3 (09:46→20:28)
[2020-03-24] MEDS: APIXABAN 2.5 MG TABLET PO SCH ×2 (09:47→20:30)
[2020-03-24] MEDS: POTASSIUM CHLORIDE 20 MEQ/PKT PACKET PO SCH ×2 (09:47→20:28)
[2020-03-24] MEDS: CHOLESTYRAMINE/SUCROSE 4 GM/PACKET PO SCH ×3 (09:47→20:28)
[2020-03-24] MEDS: FLUDROCORTISONE ACETATE 0.1 MG TABLET( FLORINEF) PO SCH (09:56)
[2020-03-24 12:49] VITALS: BP_SYST 84
--- NOTE | 2020-03-24 16:00 | NUR ---
Pt had loose BM and requested to be cleaned. Encouraged pt to clean himself. Pt complied and cleaned himself. This nurse changed linens. Offered pt urinal for need of urine sample. Pt stated that he will call when he urinates in urinal. Also instructed pt to call for bedpan when he needs to have BM. Pt verbalized understanding of all instructions and agreed. Pt care and monitoring continued.
--- NOTE | 2020-03-24 16:36 | NUR ---
Dr. Bolaños called back. Notified Dr. Bolaños re: critical K+=2.8 this morning and still will many episodes of diarrhea and BUN/Cr= still high. No new orders. Scheduled potassium continued. C. Diff precautions continued.
--- NOTE | 2020-03-24 16:45 | NUR ---
Pt to have HD tomorrow.
[2020-03-24 16:49] VITALS: BP_SYST 109
--- NOTE | 2020-03-24 17:40 | NUR ---
P.T. NOTES P.T. EVAL COMPLETED; REFER TO EVAL FOR DETAILS.
[2020-03-24 20:30] VITALS: BP_SYST 116
--- NOTE | 2020-03-24 20:30 | NUR ---
Opening notes Pt AAOx4, VSS, afebrile, no s/s distress noted. IVF infusing at ordered rate L.wrist clear and patent. R. subclavian permacath dressing C/D/I. Old trache stoma dressing changed, no redness or drainage noted at site. Informed pt of plan of care, for HD tomorrow, pt verbalized understanding. Enteric contact isolation maintained. Call light within reach. BEd low, locked, siderails up x2, alarm on. To monitor.
[2020-03-24 20:47] LABS: CLARITY/URINE CLEAR (CLEAR); COLOR,URINE YELLOW (YELLOW)
[2020-03-24 20:48] LABS: BILIRUBIN,URINE NEGATIVE (NEGATIVE); BLOOD, URINE NEGATIVE (NEGATIVE); GLUCOSE,URINE NEGATIVE (NEGATIVE); KETONES,URINE NEGATIVE (NEGATIVE); LEUKOCYTE ESTERASE ,URINE TRACE (NEGATIVE); NITRITE, URINE NEGATIVE (NEGATIVE); PROTEIN URINE 1+ (NEGATIVE)
[2020-03-24 20:49] LABS: UROBILINOGEN,URINE 0.2 (0.2-1.0)
[2020-03-24 20:50] LABS: RBC,URINE 0-3 /HPF (0-3)
[2020-03-24 20:51] LABS: BACTERIA,URINE MODERATE /HPF (None Seen)
[2020-03-24 20:53] LABS: MUCUS,URINE None Seen /LPF (None Seen); TRICHOMONAS,URINE None Seen /HPF (None Seen); YEAST,URINE None Seen /HPF (None Seen)
[2020-03-25] MEDS: metroNIDAZOLE 500 mg/NS 100 ML IV SCH ×4 (00:18→21:28)
--- NOTE | 2020-03-25 00:30 | NUR ---
Rounds Pt asleep, easily awakens no s/s distress noted. VSS, afebrile. IVF infusing at ordered rate L.wrist clear and patent. Enteric contact isolation maintained. Call light within reach. BEd low, locked, siderails up x2, alarm on. To monitor.
[2020-03-25 01:00] VITALS: BP_SYST 121
--- NOTE | 2020-03-25 04:30 | NUR ---
Rounds Pt incontinent of BM, pericare provided w/ INFECTION CONTROL PREVENTIONIST assist and Z guard barrier cream applied to sacral area. Call light within reach. To monitor.
[2020-03-25] MEDS: D5/0.45 NS 1,000 ML IV SCH ×2 (05:32→05:41)
--- NOTE | 2020-03-25 05:45 | NUR ---
Closing notes Pt alert, awake, resting in bed, no s/s distress noted. IVF infusing at ordered rate L.wrist clear and patent. R. subclavian permacath dressing C/D/I. Old trache stoma dressing C/D/I. Enteric contact isolation maintained. Call light within reach. Bed low, locked, siderails up x2, alarm on. To monitor.
[2020-03-25 06:26] LABS: BASOPHILS % (AUTO) 0.2 % (0.0-2.0); EOSINOPHILS # (AUTO) 0.1 K/uL (0.0-0.4); EOSINOPHILS % (AUTO) 0.6 % (0.0-4.0); HEMATOCRIT 32.7 % (36-54); HEMOGLOBIN 10.7 g/dL (14.0-18.0); LYMPHOCYTES # (AUTO) 1.5 K/uL (1.0-5.5); LYMPHOCYTES % (AUTO) 10.6 % (20.5-51.5); MEAN CORPUSCULAR HEMOGLOBIN 33 pg (27-31); MEAN CORPUSCULAR HGB CONC 33 % (32-36); MEAN CORPUSCULAR VOLUME 100 fL (79.0-98.0); MONOCYTES # (AUTO) 1.1 K/uL (0.0-1.0); MONOCYTES % (AUTO) 7.4 % (1.7-9.3); NEUTROPHILS # (AUTO) 11.8 K/uL (1.8-7.7); NEUTROPHILS % (AUTO) 81.2 % (40.0-70.0); PLATELET COUNT (AUTO) 172 K/uL (130-430); RED BLOOD CELL COUNT(AUTO) 3.26 MIL/uL (4.2-6.2); RED CELL DISTRIBUTION WIDTH 15.6 % (9.0-15.0); WHITE BLOOD COUNT (AUTO) 14.5 K/uL (4.8-10.8)
[2020-03-25 07:16] LABS: CALCIUM 7.9 mg/dL (8.4-11.0); CREATININE 3.26 mg/dL (0.55-1.30)
[2020-03-25 08:00] VITALS: BP_SYST 103
[2020-03-25 08:05] LABS: POTASSIUM 2.9 mmol/L (3.5-5.1)
--- NOTE | 2020-03-25 08:07 | NUR ---
Left message to Dr. Bolaños re: pt's critically low K+=2.9. Pt already taking K+ 20 mEq BID, but K+ still remains critically low. Awaiting response.
[2020-03-25] MEDS: VANCOMYCIN HCL ORAL SOLUTION 250 MG/5 ML, 80 ML PO SCH ×4 (09:02→21:27)
[2020-03-25] MEDS: POTASSIUM CHLORIDE 20 MEQ/PKT PACKET PO SCH ×2 (10:33→21:27)
[2020-03-25] MEDS: MIDODRINE HCL 5 MG TABLET (PROAMATINE) PO SCH ×3 (10:33→21:26)
[2020-03-25] MEDS: CHOLESTYRAMINE/SUCROSE 4 GM/PACKET PO SCH ×3 (10:33→21:27)
[2020-03-25 12:00] VITALS: BP_SYST 97
[2020-03-25] MEDS: APIXABAN 2.5 MG TABLET PO SCH ×2 (14:46→21:27)
[2020-03-25] MEDS: FLUDROCORTISONE ACETATE 0.1 MG TABLET( FLORINEF) PO SCH (14:47)
[2020-03-25 16:38] VITALS: BP_SYST 88
--- NOTE | 2020-03-25 16:45 | NUR ---
Discharge Planinh: .DCP faxed pt referral to [facility], DCP to follow up.
[2020-03-25 20:00] VITALS: BP_SYST 107
--- NOTE | 2020-03-25 20:00 | NUR ---
Opening notes Pt AAOx4, VSS, afebrile, denies any pain. IVF infusing at ordered rate L.wrist clear and patent. R. subclavian permacath dressing C/D/I. Old trache stoma dressing C/D/I, no redness or drainage noted at site. Informed pt of plan of care, pt verbalized understanding. Enteric contact isolation maintained. Call light/items within reach. Bed low, locked, siderails up x2, alarm on. To monitor.
--- NOTE | 2020-03-25 21:28 | NUR ---
Med pass Pt awake, no s/s distress noted. Meds passed, IV antibiotics administered at ordered rate. Call light within reach. Safety maintained. To monitor.
--- NOTE | 2020-03-25 23:30 | NUR ---
Rounds Pt incontinent of small loose BM, pericare provided. Photo taken and Z guard applied to sacral redness. Pt repositioned. Call light within reach. Enteric contact isolation maintained. To monitor.
[2020-03-26 00:49] VITALS: BP_SYST 115
--- NOTE | 2020-03-26 02:20 | NUR ---
Pericare Pt incontinent of loose BM. Pericare provided and Z guard applied to sacral redness. Enteric isolation maintained. Call light within reach. To monitor.
[2020-03-26] MEDS: D5/0.45 NS 1,000 ML IV SCH (05:41)
[2020-03-26] MEDS: metroNIDAZOLE 500 mg/NS 100 ML IV SCH ×2 (05:42→13:39)
--- NOTE | 2020-03-26 05:50 | NUR ---
Closing notes Pt alert, awake, watching TV, no s/s distress noted. R. subclavian permacath dressing C/D/I. IV antibiotic and IVF administered at ordered rate L. wrist 24G no s/s infiltration. Pt still has loose BM, Z guard barrier cream applied after incontinence care to sacral area. Call light within reach. Bed low, locked, siderails up x2. To endorse to AM nurse.
[2020-03-26 06:52] LABS: BASOPHILS % (AUTO) 0.1 % (0.0-2.0); EOSINOPHILS # (AUTO) 0.1 K/uL (0.0-0.4); EOSINOPHILS % (AUTO) 0.9 % (0.0-4.0); HEMATOCRIT 32.7 % (36-54); HEMOGLOBIN 10.6 g/dL (14.0-18.0); LYMPHOCYTES # (AUTO) 2.3 K/uL (1.0-5.5); LYMPHOCYTES % (AUTO) 16.8 % (20.5-51.5); MEAN CORPUSCULAR HEMOGLOBIN 33 pg (27-31); MEAN CORPUSCULAR HGB CONC 33 % (32-36); MEAN CORPUSCULAR VOLUME 101 fL (79.0-98.0); MONOCYTES # (AUTO) 0.8 K/uL (0.0-1.0); MONOCYTES % (AUTO) 6.3 % (1.7-9.3); NEUTROPHILS # (AUTO) 10.2 K/uL (1.8-7.7); NEUTROPHILS % (AUTO) 75.9 % (40.0-70.0); PLATELET COUNT (AUTO) 176 K/uL (130-430); RED BLOOD CELL COUNT(AUTO) 3.24 MIL/uL (4.2-6.2); RED CELL DISTRIBUTION WIDTH 15.7 % (9.0-15.0); WHITE BLOOD COUNT (AUTO) 13.4 K/uL (4.8-10.8)
[2020-03-26 06:54] LABS: CALCIUM 7.7 mg/dL (8.4-11.0); CREATININE 2.25 mg/dL (0.55-1.30); POTASSIUM 3.1 mmol/L (3.5-5.1)
--- NOTE | 2020-03-26 08:00 | NUR ---
AM ROUNDS: RECEIVED PATIENT ON THE BED.SLEEPING. ON CONTACT ISOLATION FOR C-DIFF,PRECAUTION RENDERED. RIGHT SUBCLAVIAN PERMA CATHETER,DRESSING CLEAN AND DRY.LEFT WRIST IV IN PLACE.CALL LIGHT WITH IN REACH. BED LOCKED AT LOWEST POSITION. CONDITION GUARDED.
[2020-03-26 08:20] VITALS: BP_SYST 90
[2020-03-26] MEDS: FLUDROCORTISONE ACETATE 0.1 MG TABLET( FLORINEF) PO SCH (08:55)
[2020-03-26] MEDS: APIXABAN 2.5 MG TABLET PO SCH (08:55)
[2020-03-26] MEDS: MIDODRINE HCL 5 MG TABLET (PROAMATINE) PO SCH ×2 (08:55→15:22)
[2020-03-26] MEDS: POTASSIUM CHLORIDE 20 MEQ/PKT PACKET PO SCH (08:55)
[2020-03-26] MEDS: CHOLESTYRAMINE/SUCROSE 4 GM/PACKET PO SCH ×2 (08:55→15:22)
[2020-03-26] MEDS: VANCOMYCIN HCL ORAL SOLUTION 250 MG/5 ML, 80 ML PO SCH ×2 (08:56→13:39)
--- NOTE | 2020-03-26 09:17 | NUR ---
Discharge Planning: DCP followed up with Martha at [facility] referral is being reviewed. DCP to follow up. Addendum: 03/26/20 at 1000 by Francia Huffman DP DCP followed up with Martha at [facility] ([phone]) pt will go to [facility]. DCP made nurse and CM aware. Addendum: 03/26/20 at 1049 by Francia Huffman DP DCP arranged transportation with [facility] ([phone]) Will Call BLS to [facility] ([phone]) pt will go to [facility]. DCP took pt packet to nurse station.
[2020-03-26 11:41] VITALS: BP_SYST 115
[2020-03-26] MEDS ORDERED: POTA20PA30 PO (12:07)
[2020-03-26] MEDS ORDERED: VANC250C11 PO (12:07)
[2020-03-26] MEDS ORDERED: METR500T PO (12:09)
[2020-03-26 14:36] VITALS: BP_SYST 115
--- NOTE | 2020-03-26 14:58 | NUR ---
CALLED : INFORMED JUDD PATIENT GOING BACK TO [facility] AT 4PM THIS AFTERNOON.
--- NOTE | 2020-03-26 15:10 | NUR ---
REPORT: REPORT GIVEN TO KENISHA Handy RN FROM [facility].
--- NOTE | 2020-03-26 16:30 | NUR ---
D/C Patient Transfer packet given to [facility] unit [facility][id number]. Exit Care provided. Patient verbalized understanding. MD discussed with patient the results and treatment provided. Patient in stable condition, ID band removed,replaced with white band. IV catheter removed, intact and dressing applied, no active bleeding. Patient educated on pain management. All belongings sent with patient.[facility] ambulance transported patient to [facility] in stable condition.
== END 2020-03-26 16:30 | DRG 248 ==
LOC: SED 11:45 → STU 14:22
PROVIDERS: ADMIT Internal Medicine; ATTEND Internal Medicine
PROC: 5A1D70Z Performance of Urinary Filtration, Intermittent, Less than 6 Hours Per Day (ICD-10-PCS; principal; 2020-03-18)
PROC: 5A1D70Z Performance of Urinary Filtration, Intermittent, Less than 6 Hours Per Day (ICD-10-PCS; 2020-03-20)
PROC: 5A1D70Z Performance of Urinary Filtration, Intermittent, Less than 6 Hours Per Day (ICD-10-PCS; 2020-03-23)
PROC: 5A1D70Z Performance of Urinary Filtration, Intermittent, Less than 6 Hours Per Day (ICD-10-PCS; 2020-03-24)
DX: A04.72 Enterocolitis due to Clostridium difficile, not specified as recurrent (principal); E43 Unspecified severe protein-calorie malnutrition; D63.1 Anemia in chronic kidney disease; K21.9 Gastro-esophageal reflux disease without esophagitis; I13.2 Hypertensive heart and chronic kidney disease with heart failure and with stage 5 chronic kidney disease, or end stage renal disease; N18.6 End stage renal disease; I50.9 Heart failure, unspecified; I48.0 Paroxysmal atrial fibrillation; N40.0 Benign prostatic hyperplasia without lower urinary tract symptoms; G62.9 Polyneuropathy, unspecified; E87.6 Hypokalemia; Z20.828 Contact with and (suspected) exposure to other viral communicable diseases; K55.9 Vascular disorder of intestine, unspecified; K75.0 Abscess of liver; N21.0 Calculus in bladder; K65.1 Peritoneal abscess; J18.9 Pneumonia, unspecified organism; I69.354 Hemiplegia and hemiparesis following cerebral infarction affecting left non-dominant side; Z99.2 Dependence on renal dialysis; Z88.1 Allergy status to other antibiotic agents; Z88.5 Allergy status to narcotic agent; Z86.718 Personal history of other venous thrombosis and embolism; Z74.01 Bed confinement status; Z79.01 Long term (current) use of anticoagulants; Z68.1 Body mass index [BMI] 19.9 or less, adult; Z93.0 Tracheostomy status; Z87.891 Personal history of nicotine dependence; Z87.01 Personal history of pneumonia (recurrent); R65.11 Systemic inflammatory response syndrome (SIRS) of non-infectious origin with acute organ dysfunction
CPT/HCPCS: 36415; 71045; 80048; 80053; 80061; 81000-TC; 82150-TC; 82272; 83605; 83690-TC; 83735-TC; 84100-TC; 84443-TC; 84484; 85007; 85025; 85027; 85610-TC; 85730-TC; 87040-TC; 87045-TC; 87046; 87081; 87086; 87230-TC; 89055; 90935; 90937; 93005; 93306; 96360; 97110-GP; 97112-GP; 97116-GP; 97530-GP; 99291; G0378; J1644; J1956; J2405; J2765; J3370; J3490; J7030; P9046